=== PATIENT | female | born 2000 | race African-American/Black ===

== ENCOUNTER 2018-02-07 22:20 | Emergency (ER) | payer SELFPAY ==
[2018-02-07 22:27] VITALS: BP 103/60; BMI 18.8
--- NOTE | 2018-02-07 23:11 | DR.GENAD ---
HPI - PCP Primary Care Physician: NFD - Complaint/Symptoms Chief Complaint Doctors Comments: Patient admits to abdominal pain for a couple of weeks. It hurst when she walks. Admits to vomiting today. Denies fever. Admits to urinary frequency and dysuria. Bowel movement have been good. Chief Complaint:: PT C/O GENERALIZED ABD PAIN PT POINTS TO ENTIRE ABD PT STATES " IT HURTS TO WALK STRAIGHT UP SO I WALK HUMPED OVER" - Source History Provided: Patient - Mode of Arrival Mode of Arrival: Ambulatory - Timing Onset of Chief Complaint: 01/31/18 PMH - PMH Past Medical History: No Past Surgical History: No Surgical History: No History - Family History History of Family Medical Conditions: No - Social History Type of Tobacco Use: Cigarettes Does any household member use tobacco: Yes Alcohol Use: None Do you use any recreational Drugs:: No Lives With: Family Lives Where: Home - infectious screening In the last 2 months have you had wt loss of >10#?: NO Have you had fever, night sweats or hemotysis?: No Have you traveled outside the country in the last 6 months?: No Isolation: Standard ROS - Review of Systems Constitutional: Diaphoresis Eyes: No Symptoms Reported ENTM: No Symptoms Reported Respiratoy: No Symptoms Reported Cardiovascular: No Symptoms Reported Gastrointestinal/Abdominal: Abdominal Pain Genitourinary: Dysuria, Frequency Neurological: No Symptoms Reported Musculoskeletal: No Symptoms Reported Integumentary: No Symptoms Reported Hematologic/Lymphatic: No Symptoms Reported Endocrine: No Symptoms Reported Psychiatric: No Symptoms Reported All Other Systems: Reviewed and Negative PE - Vital Signs Vitals: Temperature 98.2 F Pulse Rate 78 Respiratory Rate 18 Blood Pressure 103/60 O2 Sat by Pulse Oximetry 99 - General Limitations: No Limitations General Appearance: Alert, In No Apparent Distress - Head Head Exam: Normal Inspection, Atraumatic - Eyes Eye exam: Normal Appearance, PERRL, EOMI - ENT ENT Exam: Normal Exam External Ear Exam: Normal External Inspection TM/Canal Exam: Bilateral Normal Nose Exam: Normal Nose Exam Mouth Exam: Normal Inspection Throat Exam: Normal Inspection - Neck Neck Exam: Normal Inspection, Full ROM - Chest Chest Inspection: Normal Inspection - Respiratory Respiratory Exam: Normal Lung Sounds Bilat, Accessory Muscle Use Respiratory Exam: Bilateral Clear to Auscultation - Cardiovascular Cardiovascular Exam: Regular Rate, Normal Rhythm - Abdominal Exam Abdominal Exam: Normal Inspection, Normal Bowel Sounds Abdominal Tenderness: Suprapubic - Back Back Exam: Normal Inspection, Full ROM - Neurologic Neurological Exam: Alert, Oriented X3, CN II-XII Intact - Psychiatric Psychiatric Exam: Normal Affect - Skin Skin Exam: Warm, Dry, Intact Course - Reevaluation 1st: Improved ROR - Labs Reviewed Laboratory Results Reviewed?: Yes (UA: Nit Pos, Leuk Pos, 1+bld) Laboratory: C-Reactive Protein 6.80 mg/L (0-3.0) H 02/07/18 23:25 Specimen Type Clean catch urine 02/07/18 23:39 Urine Color Yellow (YELLOW) 02/07/18 23:39 Urine Appearance Cloudy (CLEAR) 02/07/18 23:39 Urine pH 7.0 (5.0 - 8.0) 02/07/18 23:39 Ur Specific [place] 1.010 (1.000-1.030) 02/07/18 23:39 Urine Protein Negative (NEGATIVE) 02/07/18 23:39 Urine Glucose (UA) Negative (NEGATIVE) 02/07/18 23:39 Urine Ketones Negative (NEGATIVE) 02/07/18 23:39 Urine Occult Blood 1+ (NEGATIVE) 02/07/18 23:39 Urine Nitrite Positive (NEGATIVE) 02/07/18 23:39 Urine Bilirubin Negative (NEGATIVE) 02/07/18 23:39 Urine Urobilinogen 1+ (NORMAL) 02/07/18 23:39 Ur Leukocyte Esterase 1+ (NEGATIVE) 02/07/18 23:39 Urine RBC 0-2 /HPF (NONE SEEN) 02/07/18 23:39 Urine WBC 3-5 /HPF (NONE SEEN) 02/07/18 23:39 Ur Squamous Epith Cells Numerous /HPF (NEGATIVE) 02/07/18 23:39 Amorphous Sediment 2+ /HPF (NEGATIVE) 02/07/18 23:39 Urine Bacteria 1+ /HPF (NEGATIVE) 02/07/18 23:39 Ur Culture Indicated? No/not indicated 02/07/18 23:39 - XRAY XRAY Interpreted by: Radiologist (Acute abdominal series: No acute abnormality seen. There is stool in the colon. There is no free air or pneumatosis. No dilated loop of small bowel or abnormal calcific density seen.) - Diagnosis Discharge Problem: UTI (urinary tract infection) Qualifiers: Urinary tract infection type: acute cystitis Hematuria presence: with hematuria Qualified Code(s): N30.01 - Acute cystitis with hematuria - Discharge Plan Condition: Stable - Follow ups/Referrals Follow ups/Referrals: NFD,None [Primary Care Provider] - 3 days - Instructions
[2018-02-08 00:04] LABS: BILIRUBIN,URINE NEGATIVE (NEGATIVE); BLOOD/HEMOGLOBIN,URINE 1+ (NEGATIVE); GLUCOSE, URINE NEGATIVE (NEGATIVE); KETONES,URINE NEGATIVE (NEGATIVE); LEUKOCYTE ESTERASE ,URINE 1+ (NEGATIVE); NITRITES,URINE POSITIVE (NEGATIVE); PROTEIN,URINE NEGATIVE (NEGATIVE); UROBILINOGEN,URINE 1+ (NORMAL)
[2018-02-08 00:26] LABS: APPEARANCE,URINE CLOUDY (CLEAR); COLOR,URINE YELLOW (YELLOW)
[2018-02-08 00:27] LABS: AMORPHOUS SEDIMENT,UR 2+ /HPF (NEGATIVE); BACTERIA,URINE 1+ /HPF (NEGATIVE); RBC,URINE 0-2 /HPF (NONE SEEN); SQUAMOUS EPITHELIAL CELL,UR NUMEROUS /HPF (NEGATIVE)
--- NOTE | 2018-02-08 00:56 | RAD ---
Acute abdomen series chest, supine and upright Indication: Abdominal pain for 2 weeks Findings: There is gas and stool in the colon. There is no free air or pneumatosis. No dilated loop o f small bowel or abnormal calcific density seen. Chest radiograph shows no acute abnormality. Impression: No acute abnormality seen Reported By:
[2018-02-08] MEDS ORDERED: BACTRIM DS TAB PO ONE ×2 (01:11→01:12)
== END 2018-02-08 01:15 | disposition home or self-care (01) ==
LOC: ER 22:34
DX: N30.01 Acute cystitis with hematuria (principal)
CPT/HCPCS: 36415; 74022; 81001; 86140; 99282; 99283

== ENCOUNTER 2021-01-23 03:18 | Inpatient (IN) ==
[2021-01-23 03:56] VITALS: BMI 29.2
[2021-01-23 05:08] LABS: BILIRUBIN,URINE NEGATIVE (NEGATIVE); BLOOD/HEMOGLOBIN,URINE 1+ (NEGATIVE); GLUCOSE, URINE NEGATIVE (NEGATIVE); KETONES,URINE 3+ (NEGATIVE); LEUKOCYTE ESTERASE ,URINE 3+ (NEGATIVE); NITRITES,URINE NEGATIVE (NEGATIVE); PH,URINE 6.5 (5.0 - 8.0); PROTEIN,URINE 1+ (NEGATIVE); UROBILINOGEN,URINE 2+ (NORMAL)
[2021-01-23 05:22] LABS: AMNISURE ROM TEST NO MEMBRANES RUPTURE (NO RUPTURE)
[2021-01-23 05:23] LABS: APPEARANCE,URINE CLEAR (CLEAR); BACTERIA,URINE TRACE /HPF (NEGATIVE); COLOR,URINE YELLOW (YELLOW); MUCUS,URINE MODERATE /HPF (NEGATIVE); SQUAMOUS EPITHELIAL CELL,UR FEW /HPF (NEGATIVE); TRICHOMONAS,URINE MODERATE /HPF (NEGATIVE)
[2021-01-23] MEDS ORDERED: PHENERGAN INJ 25 MG IM PRN ×2 (06:05→07:35)
[2021-01-23] MEDS ORDERED: PITOCIN IVP ONE (06:05)
[2021-01-23] MEDS ORDERED: MORPHINE SULFATE INJ 2 MG INJ IVP PRN (06:05)
[2021-01-23] MEDS ORDERED: D5LR 1L W PITOCIN 10 UNITS/L 10 UNITS/1,000 ML BAG IV PRN (06:05)
[2021-01-23] MEDS ORDERED: DILAUDID INJ IVP PRN (06:05)
[2021-01-23] MEDS ORDERED: REGLAN INJ 10 MG VIAL IVP PRN (06:05)
[2021-01-23] MEDS ORDERED: STADOL INJ IVP PRN (06:08)
[2021-01-23 06:35] LABS: BASOPHILS # (AUTO) 0.1 X10^3/uL (0.0-0.1); BASOPHILS % (AUTO) 0.6 % (0.2-1.0); EOSINOPHILS % (AUTO) 0.4 % (0.9-2.9); HEMATOCRIT 28.9 % (36.0-47.0); HEMOGLOBIN 9.1 g/dL (12.0-16.0); LYMPHOCYTES # (AUTO) 2.2 X10^3/uL (1.3-2.9); LYMPHOCYTES % (AUTO) 18.5 % (21.0-51.0); MEAN CORPUSCULAR HEMOGLOBIN 22.5 pg (27.0-34.0); MEAN CORPUSCULAR HGB CONC 31.6 g/dL (33.0-35.0); MEAN CORPUSCULAR VOLUME 71.4 fL (80.0-100.0); MEAN PLATELET VOLUME 8.7 fL (7.4-11.0); MONOCYTES # (AUTO) 0.6 x10^3/uL (0.3-0.8); MONOCYTES % (AUTO) 5.2 % (0.0-13.0); NEUTROPHILS # (AUTO) 9.1 x10^3/uL (2.2-4.8); NEUTROPHILS % (AUTO) 75.3 % (42.0-75.0); PLATELET COUNT 306 X10^3/uL (150.0-450.0); RED BLOOD COUNT 4.05 X10^6/uL (3.5-5.4); RED CELL DISTRIBUTION WIDTH 17.1 % (11.6-16.5); WHITE BLOOD COUNT 12.1 X10^3/uL (3.6-10.0)
[2021-01-23 06:44] LABS: BLOOD UREA NITROGEN 6 mg/dL (7-18); CALCIUM 9.2 mg/dL (8.5-10.1); CARBON DIOXIDE 18.3 mmol/L (21-32); CHLORIDE 100 mmol/L (98-107); COR NA(FOR HYPERGLY) 133 mmol/L (136-145); CREATININE 0.65 mg/dL (0.55-1.02); SODIUM 133 mmol/L (136-145); eGFR NON BLACK RACES > 60 (>60)
[2021-01-23 06:56] LABS: GIANT PLATELET OCC.; PLATELET MORPHOLOGY COMMENT ABNORMAL (NORMAL)
[2021-01-23 06:57] LABS: ANISOCYTOSIS SLIGHT; HYPOCHROMASIA SLIGHT; MICROCYTOSIS SLIGHT
[2021-01-23] MEDS ORDERED: AMPICILLIN VIAL 2 GRAM 2 G in NS 100 ML IV + SPIKE MINIBAG* 100 ML IV SCH (07:00)
[2021-01-23] MEDS ORDERED: D5 1/2 NS 1000 ML 1,000 ML IV SCH (07:00)
[2021-01-23] MEDS ORDERED: MOTRIN TAB 800 MG PO PRN (07:35)
[2021-01-23] MEDS ORDERED: D5 1/2 NS 1000 ML 1,000 ML with PITOCIN 20 UNITS IV SCH ×2 (08:00)
[2021-01-23] MEDS ORDERED: DERMOPLAST PAIN RELIEF SPRAY TOP PRN (08:55)
[2021-01-23] MEDS ORDERED: AMBIEN PO PRN (08:55)
[2021-01-23] MEDS ORDERED: MILK OF MAGNESIA PO PRN (08:55)
[2021-01-23] MEDS ORDERED: AMPICILLIN VIAL 1 GRAM IV ONE (10:00)
[2021-01-23] MEDS: PRENATAL PLUS PO SCH (14:03)
[2021-01-23] MEDS ORDERED: HEMABATE IM PRN (15:39)
[2021-01-23] MEDS: MOTRIN TAB 800 MG PO PRN (21:17)
[2021-01-24 06:17] LABS: HEMATOCRIT 22.1 % (36.0-47.0)
[2021-01-24] MEDS ORDERED: NS 100 ML IV 100 ML with VENOFER 400 MG IV NR ×2 (07:58)
[2021-01-24] MEDS: PRENATAL PLUS PO SCH (08:12)
[2021-01-24] MEDS: MOTRIN TAB 800 MG PO PRN ×2 (08:13→17:53)
--- NOTE | 2021-01-25 08:22 | NOTE.PROOB ---
progress Note OB- Subjective Data Subjective: No complaints, decreased lochia. Tolerating regular diet. No N/V. Ambulating well. No dysuria. Objective Data Result Diagrams: 01/24/21 06:03 01/23/21 06:19 Objective Data: CV= RRR no MRG Lungs=CTA Bilaterally Abd=(+) BS, soft, NTND, Fundus firm/NT/ at { } cm below umbilicus. Ext=no edema, NT, no cords Plan (1) (spontaneous vaginal delivery): Plan: ready for d/c
[2021-01-25] MEDS: PRENATAL PLUS PO SCH (08:39)
[2021-01-25 09:04] VITALS: BP 109/59
[2021-01-25] MEDS ORDERED: ADACEL or BOOSTRIX TDaP VACCINE IM ONE ×2 (09:28→09:30)
== END 2021-01-25 10:00 | disposition home or self-care (01) | DRG 807 ==
LOC: ER 03:20 → LD 05:25 → MED/SURG 09:24
PROVIDERS: ADMIT Obstetrics & Gynecology Obstetrics; ATTEND Obstetrics & Gynecology Obstetrics
DX: Z20.822 Contact with and (suspected) exposure to COVID-19; B95.1 Streptococcus, group B, as the cause of diseases classified elsewhere; O99.824 Streptococcus B carrier state complicating childbirth; Z3A.38 38 weeks gestation of pregnancy; O70.0 First degree perineal laceration during delivery; Z37.0 Single live birth

== ENCOUNTER 2022-06-15 06:15 | Inpatient (IN) ==
[2022-06-15] MEDS ORDERED: D5 1/2 NS 1,000 ML 1,000 ML IV ONE (06:39)
[2022-06-15] MEDS ORDERED: PITOCIN ONE ×2 (06:39→15:39)
[2022-06-15] MEDS ORDERED: BETADINE SOLN ONE ×2 (06:40→19:05)
[2022-06-15] MEDS ORDERED: D5 1/2 NS 1,000 mL + PITOCIN 20 UNITS/L IV 20 UNITS/1,000 ML BAG IV ONE (06:41)
[2022-06-15] MEDS ORDERED: D5 LR + PITOCIN 10 UNITS/L 10 UNITS/1,000 ML BAG IV ONE (06:41)
--- NOTE | 2022-06-15 07:11 | DR.OB ---
OB Quick Note - Assessment/Plan Assessment/Plan: L&D 06/15/22 at 7:00am S-No complaint. O-Afebrile,VSS EMF=256 with good LTV, +accel, no decel. CTX=occasional, mild CVX=2cm/50%/-1/VTX AROM with clear fluid. IUPC and FSE placed. A-IUP at 39 0/7 weeks for induction anemia P-Begin pitocin induction Anticipate
[2022-06-15] MEDS ORDERED: PITOCIN IVP ONE (07:20)
[2022-06-15] MEDS ORDERED: REGLAN INJ 10 MG VIAL IVP PRN (07:20)
[2022-06-15] MEDS ORDERED: D5 1/2 NS 1,000 ML 1,000 ML IV SCH (07:20)
[2022-06-15] MEDS ORDERED: MORPHINE SULFATE INJ 2 MG INJ IVP PRN (07:20)
[2022-06-15] MEDS ORDERED: D5 LR + PITOCIN 10 UNITS/L 10 UNITS/1,000 ML BAG IV PRN (07:20)
[2022-06-15] MEDS ORDERED: PHENERGAN INJ 25 MG IM PRN ×2 (07:20→14:52)
[2022-06-15] MEDS ORDERED: NUBAIN INJ 200 MG VIAL MULTIDOSE IVP PRN (07:20)
[2022-06-15] MEDS ORDERED: LR 1,000 ML IV 1,000 ML IV ONE ×2 (10:50→13:08)
[2022-06-15] MEDS ORDERED: FENTANYL VIAL INJ 100 mcg ONE (10:50)
[2022-06-15] MEDS ORDERED: NAROPIN EPIDURAL 0.2% 100 ML ONE (10:51)
--- NOTE | 2022-06-15 12:04 | DR.OB ---
OB Quick Note - Assessment/Plan Assessment/Plan: L&D 06/15/22 at 12:01pm Pitocin=10mu/min. S-No complaint. s/p epidural. O-Afebrile,VSS YIJ=970 with good LTV, +accel, no decel. CTX=q 1 1/2 to 2 min., about 55-65mmHg CVX=4cm/75%/-1/VTX A-IUP at 39 0/7 weeks for induction anemia P-Cont. pitocin induction Anticipate
[2022-06-15] MEDS ORDERED: ZOFRAN INJ 4 MG VIAL ONE (12:50)
[2022-06-15] MEDS ORDERED: EPHEDRINE SULFATE INJ ONE (13:08)
--- NOTE | 2022-06-15 14:51 | DR.OB ---
OB Quick Note - Assessment/Plan Assessment/Plan: Delivery Note FIELD SERVICE ANALYST 06/15/22 at 2:45pm Patient complete and pushing. Head delivered over intact perineum. No nuchal cord. Nose and mouth bulb suctioned. Body delivered over intact perineum. Cord clamped x 2 and cut. handed to attendant. Cord sent for gases. Placenta delivered spontaneously / intact / 3 vessel cord. A true knot noted. No CVX / vaginal / perineal tears noted. Viable female infant, VTX/OA, wt=6'11" and 9/10, stable to NBN. Mother stable to RR. OHI=522bv.
[2022-06-15] MEDS: D5 1/2 NS 1,000 ML 1,000 ML with PITOCIN 20 UNITS IV SCH ×4 (15:28→23:11)
[2022-06-15] MEDS ORDERED: AMBIEN PO PRN (16:04)
[2022-06-15] MEDS ORDERED: DERMOPLAST PAIN RELIEF SPRAY TOP PRN (16:04)
[2022-06-15] MEDS ORDERED: MILK OF MAGNESIA PO PRN (16:04)
[2022-06-15] MEDS ORDERED: ADACEL or BOOSTRIX TDaP VACCINE IM ONE (16:04)
[2022-06-15] MEDS: FERROUS GLUCONATE PO SCH (17:35)
[2022-06-15] MEDS: MOTRIN TAB 800 MG PO PRN (20:00)
[2022-06-16 05:23] LABS: HEMOGLOBIN 7.9 g/dL (12.0-16.0)
[2022-06-16] MEDS ORDERED: DEPO-PROVERA CONTRACEPTIVE INJ IM ONE ×2 (06:15→14:21)
[2022-06-16] MEDS: D5 1/2 NS 1,000 ML 1,000 ML with PITOCIN 20 UNITS IV SCH ×2 (06:17)
[2022-06-16] MEDS: FERROUS GLUCONATE PO SCH (06:17)
[2022-06-16] MEDS: MOTRIN TAB 800 MG PO PRN (08:29)
[2022-06-16] MEDS ORDERED: PRENATAL PLUS PO SCH (09:00)
[2022-06-16 17:19] VITALS: BP 106/57
== END 2022-06-16 17:30 | disposition home or self-care (01) | DRG 807 ==
LOC: LD 06:15 → MED/SURG 15:59
PROVIDERS: ADMIT Specialist; ATTEND Specialist
DX: Z37.0 Single live birth; Z3A.39 39 weeks gestation of pregnancy; D50.8 Other iron deficiency anemias; O99.013 Anemia complicating pregnancy, third trimester